=== PATIENT | female | born 1950 | race Hispanic/Latino ===

== ENCOUNTER 2018-05-21 15:25 | Emergency (ER) | payer MEDICARE | END 2018-05-21 15:56 | disposition home or self-care (01) | LOC: EDH 15:25 | DX: L03.115 Cellulitis of right lower limb (principal); I12.0 Hypertensive chronic kidney disease with stage 5 chronic kidney disease or end stage renal disease; E11.22 Type 2 diabetes mellitus with diabetic chronic kidney disease; N18.6 End stage renal disease; E78.5 Hyperlipidemia, unspecified; Z99.2 Dependence on renal dialysis; Z90.49 Acquired absence of other specified parts of digestive tract; Z79.899 Other long term (current) drug therapy ==

== ENCOUNTER 2018-06-29 08:08 | Day surgery (SDC) | payer MEDICARE ==
[2018-06-29] VITALS (7 sets, daily range): BP systolic 104–148; BP diastolic 34–58
[~2018-06-29] VITALS: Ht 157.5 cm; Wt 104.3 kg
[~2018-06-29 08:08] MED LIST: ALLO100T PO; ATOR40TA71 PO; COLE1TAB2 PO; ERGO500014 PO; ESOM40CA54 PO; FURO20TA4 PO; GABA-531 PO; INSNOV SQ; INSU100V12 SQ; LEVO50TA11 PO; LIOT50TA3 PO; MUPI22OI2 TP; NEBI10TA PO; SODIUM CHLORIDE 0.9% 1000ML 1,000 ML IV ONE; SOLI5 PO
[2018-06-29] MEDS ORDERED: DEXTROSE 50%-WATER 50 ML DISP.SYRIN IV ONE (09:29)
[2018-06-29] MEDS ORDERED: PROPOFOL 10 MG/ML 20ML VIAL IV ONE (10:06)
== END 2018-06-29 11:25 | disposition home or self-care (01) ==
LOC: DAH 08:08 → ENDO 08:08
PROVIDERS: ATTEND Internal Medicine Gastroenterology
DX: Z09 Encounter for follow-up examination after completed treatment for conditions other than malignant neoplasm (principal); D12.2 Benign neoplasm of ascending colon; K22.2 Esophageal obstruction; Z86.010 Personal history of colon polyps; E78.2 Mixed hyperlipidemia; K31.9 Disease of stomach and duodenum, unspecified; K29.50 Unspecified chronic gastritis without bleeding; K21.9 Gastro-esophageal reflux disease without esophagitis; Z68.41 Body mass index [BMI] 40.0-44.9, adult; E11.22 Type 2 diabetes mellitus with diabetic chronic kidney disease; I12.0 Hypertensive chronic kidney disease with stage 5 chronic kidney disease or end stage renal disease; N18.6 End stage renal disease; Z79.4 Long term (current) use of insulin; Z79.84 Long term (current) use of oral hypoglycemic drugs; Z79.899 Other long term (current) drug therapy; Z79.82 Long term (current) use of aspirin; Z98.49 Cataract extraction status, unspecified eye
CPT/HCPCS: 36415; 43239; 45380; 82948 ×3; 84132; 88305; 88342; 93005; A4606; J2704; J7030; J7070

== ENCOUNTER 2018-07-29 10:07 | Emergency (ER) | payer MEDICARE ==
[~2018-07-29 10:07] MED LIST changes: -SODIUM CHLORIDE 0.9% 1000ML 1,000 ML IV ONE
[2018-07-29 11:20] LABS: BASOPHILS % (AUTO) 1.3 % (0.0-5.0); EOSINOPHILS % (AUTO) 1.8 % (0.0-8.0); HEMATOCRIT 31.8 % (36-48); MEAN CORPUSCULAR HEMOGLOBIN 30.3 pg (27.0-33.0); MEAN CORPUSCULAR HGB CONC 33.1 g/dL (32.0-36.0); MEAN CORPUSCULAR VOLUME 91.5 fL (79-99); MONOCYTES % (AUTO) 5.9 % (3.0-13.0); PLATELET COUNT (AUTO) 269 K/uL (130-400); RED BLOOD CELL COUNT(AUTO) 3.48 MIL/uL (4.00-5.50); RED CELL DISTRIBUTION WIDTH 14.4 % (11.0-15.5); WHITE BLOOD COUNT (AUTO) 8.7 K/uL (4.8-10.8)
[2018-07-29 11:28] LABS: CREATININE 6.4 mg/dL (0.5-1.5); POTASSIUM 3.9 mmol/L (3.5-5.1)
[2018-07-29 11:33] LABS: BILIRUBIN,TOTAL 0.6 mg/dL (0.2-1.0); TOTAL PROTEIN, SERUM 6.9 g/dL (6.0-8.3)
[2018-07-29 11:52] LABS: B-TYPE NATRIURETIC PEPTIDE 448 pg/mL (0-100)
[2018-07-29] MEDS ORDERED: FUROSEMIDE 10 MG/ML 4ML VIAL ONE (13:13)
[2018-07-29] MEDS ORDERED: SODIUM CHLORIDE 0.9% 1000ML 1,000 ML IV ONE (13:32)
== END 2018-07-29 14:42 | disposition home or self-care (01) ==
LOC: EDH 10:07
DX: I12.0 Hypertensive chronic kidney disease with stage 5 chronic kidney disease or end stage renal disease (principal); E11.22 Type 2 diabetes mellitus with diabetic chronic kidney disease; N18.6 End stage renal disease; E87.70 Fluid overload, unspecified; R05 Cough; E78.5 Hyperlipidemia, unspecified; Z99.2 Dependence on renal dialysis; Z90.49 Acquired absence of other specified parts of digestive tract; Z79.4 Long term (current) use of insulin; Z98.890 Other specified postprocedural states
CPT/HCPCS: 36415; 71046; 80053; 82550; 83880; 84484; 85025; 93005; 96374; 99285; J1940; J7030

== ENCOUNTER → 2018-08-12 | Outpatient (CLI) | payer MEDICARE | END | disposition home or self-care (01) | LOC: RAH 07-22 11:08 | PROVIDERS: ATTEND Family Medicine | DX: R11.0 Nausea (principal); E11.9 Type 2 diabetes mellitus without complications; N19 Unspecified kidney failure | CPT/HCPCS: 78264; A9541 ==

== ENCOUNTER 2018-09-10 12:10 | Inpatient (IN) | payer MEDICARE, OTHER ==
[~2018-09-10] VITALS: Ht 154.9 cm; Wt 100.2 kg
[~2018-09-10 12:10] MED LIST changes: -LIOT50TA3 PO; +LIOT50TA4 PO
[2018-09-10 12:49] LABS: BASOPHILS % (AUTO) 0.8 % (0.0-5.0); EOSINOPHILS % (AUTO) 0.2 % (0.0-8.0); HEMATOCRIT 39.5 % (36-48); LYMPHOCYTES % (AUTO) 5.8 % (21.0-51.0); MEAN CORPUSCULAR HGB CONC 32.9 g/dL (32.0-36.0); MEAN CORPUSCULAR VOLUME 91.3 fL (79-99); MONOCYTES % (AUTO) 4.6 % (3.0-13.0); NEUTROPHILS % (AUTO) 88.6 % (40.0-77.0); PLATELET COUNT (AUTO) 232 K/uL (130-400); RED BLOOD CELL COUNT(AUTO) 4.33 MIL/uL (4.00-5.50); RED CELL DISTRIBUTION WIDTH 15.2 % (11.0-15.5); WHITE BLOOD COUNT (AUTO) 17.8 K/uL (4.8-10.8)
[2018-09-10 12:55] LABS: CARBON DIOXIDE 34 mmol/L (21-32); CHLORIDE 95 mmol/L (101-111); CREATININE 4.9 mg/dL (0.5-1.5); GLOMERULAR FILTR. RATE CALC 9 mL/min (>60); GLUCOSE,RANDOM 204 mg/dL (70-105); POTASSIUM 4.5 mmol/L (3.5-5.1); SODIUM SERUM 135 mmol/L (136-145); UREA NITROGEN, BLOOD 29 mg/dL (7-18)
[2018-09-10 13:00] LABS: ALANINE AMINOTRANSFERASE 19 U/L (12-78); ALBUMIN 3.3 g/dL (3.5-5.0); ASPARTATE AMINOTRANSFERASE 20 U/L (10-37); BILIRUBIN,TOTAL 0.5 mg/dL (0.2-1.0); CREATINE KINASE, TOTAL 56 U/L (21-232); TOTAL PROTEIN, SERUM 7.8 g/dL (6.0-8.3)
[2018-09-10 13:04] LABS: AMMONIA < 10 umol/L (11-32)
[2018-09-10 13:21] LABS: INR 0.99 (0.85-1.15); PARTIAL THROMBOPLASTIN TIME 26.6 SEC (26.3-35.5); PROTHROMBIN TIME 10.4 SEC (9.6-11.6)
[2018-09-10 13:42] LABS: APPEARANCE,URINE CLEAR (CLEAR); BILIRUBIN,URINE NEGATIVE (NEGATIVE); COLOR,URINE YELLOW (YELLOW); GLUCOSE, URINE (UA) NEGATIVE (NEGATIVE); KETONES,URINE NEGATIVE (NEGATIVE); LEUKOCYTE ESTERASE ,URINE MODERATE (NEGATIVE); NITRATE,URINE NEGATIVE (NEGATIVE); OCCULT BLOOD,URINE SMALL (NEGATIVE); PH,URINE 8.5 (5.0-8.0); PROTEIN,URINE 100 mg/dL (NEGATIVE); UROBILINOGEN,URINE 0.2 mg/dL (0.2-1.0)
[2018-09-10 13:44] LABS: BACTERIA,URINE Few /HPF (None Seen); SQUAMOUS EPITHELIAL CELL,UR Few /HPF (0-2)
[2018-09-10] MEDS ORDERED: SODIUM CHLORIDE 0.9% 100 ML IV ONE (15:27)
[2018-09-10] MEDS ORDERED: CEFTRIAXONE SODIUM 1 GM ONE (15:27)
[2018-09-10] MEDS ORDERED: ACETAMINOPHEN 325 MG TAB PO PRN (16:45)
[2018-09-10] MEDS ORDERED: LABETALOL 20 MG/4 ML DISP.SYRIN IV PRN (16:45)
[2018-09-10] MEDS ORDERED: GENTAMICIN PROTOCOL PER PHARMACY IV SCH (16:45)
[2018-09-10] MEDS ORDERED: DEXTROSE 50%-WATER 50 ML DISP.SYRIN IV PRN (16:45)
[2018-09-10] MEDS ORDERED: GLUCAGON 1MG KIT 1 MG ML IM PRN (16:45)
[2018-09-10] MEDS ORDERED: ONDANSETRON HCL 4 MG/2 ML VIAL IVP PRN (16:45)
[2018-09-10] MEDS ORDERED: GENTAMICIN 120 MG IN 100ML NS 100 ML IV ONE (17:00)
--- NOTE | 2018-09-10 17:01 | NUR ---
Admit from ER in stable condition with UTI. Addendum: 09/10/18 at 1708 by OTIS HILL RN RN Amended: Links added.
--- NOTE | 2018-09-10 17:11 | NUR ---
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 Addendum: 09/10/18 at 1715 by OTIS HILL RN RN Amended: Links added.
--- NOTE | 2018-09-10 17:12 | NUR ---
very little urine output, dialysis at [facility] in [place] [facility] Addendum: 09/10/18 at 1715 by OTIS HILL RN RN Amended: Links added.
[2018-09-10 17:33] VITALS: BP 170/66
--- NOTE | 2018-09-10 17:33 | NUR ---
due to void, has little output Addendum: 09/10/18 at 1837 by OTIS HILL RN RN Amended: Links added.
--- NOTE | 2018-09-10 17:49 | NUR ---
c-pap Addendum: 09/10/18 at 1752 by OTIS HILL RN RN Amended: Links added.
--- NOTE | 2018-09-10 18:00 | NUR ---
Called pharmacy for Gentamicin
--- NOTE | 2018-09-10 18:15 | NUR ---
Notified Dr. Shabazz of nephrology consult. Orders received.
[2018-09-10] MEDS ORDERED: COMPOUND IV REFRIGERATED 1 EACH IVSOLN MISC PRN (18:45)
[2018-09-10] MEDS ORDERED: SEVE800T27 PO (19:22)
[2018-09-10] MEDS ORDERED: CALC-1153 PO (19:22)
[2018-09-10] MEDS ORDERED: ONDA8TAB5 PO (19:22)
[2018-09-10 19:50] VITALS: BP 117/44
[2018-09-10] MEDS: GENTAMICIN SULFATE 100 MG in SODIUM CHLORIDE 0.9% 100 ML IV SCH (20:12)
[2018-09-10] MEDS: INSULIN R PO SS1 SQ SCH (20:21)
[2018-09-11 00:04] VITALS: BP 138/63
[2018-09-11 04:00] VITALS: BP 151/58
[2018-09-11] MEDS: INSULIN R PO SS1 SQ SCH ×4 (05:41→20:58)
[2018-09-11] MEDS ORDERED: ONDANSETRON ODT 4 MG TAB PO PRN (07:15)
[2018-09-11] MEDS ORDERED: LEVOTHYROXINE 50 MCG TABLET PO SCH (07:55)
[2018-09-11 08:33] VITALS: BP 129/61
[2018-09-11] MEDS ORDERED: FUROSEMIDE 20 MG TABLET PO SCH (09:00)
[2018-09-11] MEDS: SOLIFENACIN SUCCINATE 5 MG PO SCH (09:00)
[2018-09-11] MEDS: COLESTIPOL HCL 1 GM PO SCH (09:00)
[2018-09-11] MEDS: LIOTHYRONINE SODIUM 50 MCG PO SCH (09:00)
[2018-09-11] MEDS: ALLOPURINOL 100 MG TABLET PO SCH (09:47)
[2018-09-11] MEDS: GABAPENTIN 300 MG CAPSULE PO SCH ×3 (09:47→20:57)
[2018-09-11] MEDS: SEVELAMER HCL 800 MG TABLET PO SCH ×2 (09:47→16:32)
[2018-09-11] MEDS: ERGOCALCIFEROL (VITAMIN D2) 50,000 UNIT CAPSULE PO SCH (09:47)
[2018-09-11] MEDS: CALCIUM 600 + VITAMIN D 400 TABLET PO SCH (09:47)
[2018-09-11] MEDS: NEBIVOLOL HCL 5 MG TABLET PO SCH (09:48)
[2018-09-11] MEDS: MUPIROCIN OINTMENT 22 GM TUBE TP SCH ×2 (09:48→20:59)
[2018-09-11 11:33] VITALS: BP 146/63
[2018-09-11] MEDS: CEFTRIAXONE SODIUM 1 GM IVP SCH (12:53)
[2018-09-11] MEDS: INSULIN LISPRO 100 UNIT/ML 3ML SQ SCH ×2 (13:16→16:30)
[2018-09-11 15:01] LABS: HEMATOCRIT 38.7 % (36-48); MEAN CORPUSCULAR HEMOGLOBIN 29.4 pg (27.0-33.0); MEAN CORPUSCULAR HGB CONC 32.4 g/dL (32.0-36.0); MEAN CORPUSCULAR VOLUME 90.7 fL (79-99); PLATELET COUNT (AUTO) 232 K/uL (130-400); RED BLOOD CELL COUNT(AUTO) 4.27 MIL/uL (4.00-5.50); RED CELL DISTRIBUTION WIDTH 16.1 % (11.0-15.5); WHITE BLOOD COUNT (AUTO) 8.4 K/uL (4.8-10.8)
[2018-09-11 15:11] LABS: CREATININE 7.3 mg/dL (0.5-1.5); POTASSIUM 4.4 mmol/L (3.5-5.1)
[2018-09-11 16:26] VITALS: BP 162/63
[2018-09-11] MEDS: INSULIN GLARGINE 100 UNITS/ML 10 ML VIAL SQ SCH (16:29)
--- NOTE | 2018-09-11 16:30 | NUR ---
INITIAL MET W PT AND RENEA WHO WILL PROVIDE TRANSPORT [facility] [place], DR SELENA FERNANDEZ MD, PROVIDES TRANSPORT; PT RESPONSE TO QUESTIONS IS ERRATIC, CONCERNED STATES NOT ACTING LIKE HERSELF, IS STILL GOOFY, INTERMITTENTLY MIXING UP WORDS, ASKED [facility] SWIFT FOR CT HEAD ORDER. WILL FOLLOW Addendum: 09/12/18 at 0856 by EDMUNDO SAM RN CM Amended: Links added.
[2018-09-11] MEDS: PANTOPRAZOLE SODIUM 40 MG TABLET.DR PO SCH (16:32)
--- NOTE | 2018-09-11 19:05 | NUR ---
CASE MANAGEMENT REQUEST PER MANASA PARAPROFESSIONAL AIDE, REQUESTING TO ASK MD FOR CT OR MRI OF HEAD/BRAIN DUE TO PATIENTS CONFUSION. PT IS AAOX3, HARD OF HEARING. CHANGE OF SHIFT HAPPENING AT THE MOMENT, REPORT PASSED TO ALLYSON TAVAREZ FOR REQUEST OF CT OR MRI OF BRAIN/HEAD.
[2018-09-11 19:50] VITALS: BP 139/55
[2018-09-11] MEDS: ATORVASTATIN CALCIUM 40 MG TABLET PO SCH (20:57)
[2018-09-12] VITALS (9 sets, daily range): BP systolic 112–190; BP diastolic 58–84
[2018-09-12] MEDS: INSULIN R PO SS1 SQ SCH (06:31)
[2018-09-12] MEDS: INSULIN LISPRO 100 UNIT/ML 3ML SQ SCH (06:31)
[2018-09-12] MEDS: SEVELAMER HCL 800 MG TABLET PO SCH ×2 (06:34→16:30)
[2018-09-12] MEDS: LEVOTHYROXINE 50 MCG TABLET PO SCH (06:35)
[2018-09-12] MEDS: INSULIN GLARGINE 100 UNITS/ML 10 ML VIAL SQ SCH (07:30)
[2018-09-12] MEDS: NEBIVOLOL HCL 5 MG TABLET PO SCH (08:57)
[2018-09-12] MEDS: CALCIUM 600 + VITAMIN D 400 TABLET PO SCH (08:58)
[2018-09-12] MEDS: LIOTHYRONINE SODIUM 50 MCG PO SCH (08:58)
[2018-09-12] MEDS: ALLOPURINOL 100 MG TABLET PO SCH (08:58)
[2018-09-12] MEDS: GABAPENTIN 300 MG CAPSULE PO SCH (08:58)
[2018-09-12] MEDS: COLESTIPOL HCL 1 GM PO SCH (08:58)
[2018-09-12] MEDS: SOLIFENACIN SUCCINATE 5 MG PO SCH (08:58)
[2018-09-12] MEDS: ERGOCALCIFEROL (VITAMIN D2) 50,000 UNIT CAPSULE PO SCH (08:58)
[2018-09-12] MEDS: MUPIROCIN OINTMENT 22 GM TUBE TP SCH ×2 (08:59→20:31)
[2018-09-12] MEDS: CEFTRIAXONE SODIUM 1 GM IVP SCH (13:53)
[2018-09-12] MEDS: NYSTATIN 15 GM POWDER TP SCH ×2 (14:00→20:30)
--- NOTE | 2018-09-12 14:00 | NUR ---
DR. SHIRLEY ROUNDED ON PT FAMILY AND PT UPSET STATED THAT A LADY HAD COME AND SAID YESTERDAY PT NEEDED A CT OF THE HEAD AND THEY WERE GOING TO ORDER ONE DR. SHIRLEY STATED, THERE WAS NO ORDER FOR CT OF THE HEAD AND HE DID NOT SEEM NECESSARY ONE EITHER SINCE PT WAS STABLE AND NEUROLOGICAL STATUS STABLE
[2018-09-12] MEDS: PANTOPRAZOLE SODIUM 40 MG TABLET.DR PO SCH (16:30)
[2018-09-12] MEDS: GENTAMICIN SULFATE 100 MG in SODIUM CHLORIDE 0.9% 100 ML IV SCH (19:50)
[2018-09-12] MEDS: ATORVASTATIN CALCIUM 40 MG TABLET PO SCH (20:30)
[2018-09-12] MEDS ORDERED: GABAPENTIN 300 MG CAPSULE PO SCH (21:00)
[2018-09-13 03:50] VITALS: BP 176/72
[2018-09-13] MEDS: LEVOTHYROXINE 50 MCG TABLET PO SCH (07:06)
[2018-09-13 08:14] VITALS: BP 174/81
[2018-09-13] MEDS: NEBIVOLOL HCL 5 MG TABLET PO SCH (09:00)
[2018-09-13] MEDS: SOLIFENACIN SUCCINATE 5 MG PO SCH (09:00)
[2018-09-13] MEDS: COLESTIPOL HCL 1 GM PO SCH (09:00)
[2018-09-13] MEDS: LIOTHYRONINE SODIUM 50 MCG PO SCH (09:00)
[2018-09-13] MEDS ORDERED: LEVOFLOXACIN 500 MG TABLET PO SCH (09:00)
--- NOTE | 2018-09-13 09:08 | NUR ---
HEMODIALYSIS TREATMENT HEMODIALYSIS NURSE IN PATIENT ROOM AND STARTING PATIENT ON HD TREATMENT. DID NOT ADMINISTER SCHEDULED BLOOD PRESSURE MEDICATIONS.
[2018-09-13] MEDS ORDERED: HEPARIN SODIUM 5000UNIT/ML 1ML VIAL IJ PRN (10:00)
[2018-09-13] MEDS ORDERED: SODIUM CHLORIDE 0.9% 1000ML 1,000 ML IV PRN (10:00)
[2018-09-13] MEDS ORDERED: 0.9% SODIUM CHLORIDE 1000 ML IV BAG IV PRN (10:00)
[2018-09-13] MEDS ORDERED: LIDOCAINE HCL-MPF 1% 2ML VIAL IJ PRN (10:00)
[2018-09-13] MEDS ORDERED: ACETAMINOPHEN 325 MG TAB PO PRN (10:00)
[2018-09-13] MEDS ORDERED: NITROGLYCERIN 0.4 MG SL TAB SL PRN (10:00)
[2018-09-13] MEDS: CALCIUM 600 + VITAMIN D 400 TABLET PO SCH (10:29)
[2018-09-13] MEDS: SEVELAMER HCL 800 MG TABLET PO SCH (10:29)
[2018-09-13] MEDS: ALLOPURINOL 100 MG TABLET PO SCH (10:29)
[2018-09-13 11:42] VITALS: BP 164/65
[2018-09-13] MEDS: MUPIROCIN OINTMENT 22 GM TUBE TP SCH (14:05)
[2018-09-13] MEDS: NYSTATIN 15 GM POWDER TP SCH ×2 (14:06→14:18)
[2018-09-13] MEDS: CEFTRIAXONE SODIUM 1 GM IVP SCH (14:21)
--- NOTE | 2018-09-13 15:45 | NUR ---
DISCHARGE INSTRUCTION REVIEWED DISCHARGE INSTRUCTIONS, AT BEDSIDE WELL, PRESCRIPTION GIVEN TO . INSTRUCTIONS TO CALL AND MAKE FOLLOW UP APPT. IN 1 WEEK. VERBALIZES UNDERSTANDING.
[2018-09-14 08:14] LABS: HEPATITIS Bs ANTIGEN SCREEN P Negative (Negative)
== END 2018-09-13 16:03 | disposition home or self-care (01) | DRG 637 ==
LOC: EDH 12:10 → OBSVTOIN 15:12 → EDHIP 15:12 → 4AH 17:01
PROVIDERS: ADMIT Internal Medicine Pulmonary Disease; ATTEND Internal Medicine Pulmonary Disease
PROC: 5A1D70Z Performance of Urinary Filtration, Intermittent, Less than 6 Hours Per Day (ICD-10-PCS; principal; 2018-09-13)
DX: E11.65 Type 2 diabetes mellitus with hyperglycemia (principal); N18.6 End stage renal disease; N39.0 Urinary tract infection, site not specified; I12.0 Hypertensive chronic kidney disease with stage 5 chronic kidney disease or end stage renal disease; Z68.41 Body mass index [BMI] 40.0-44.9, adult; G47.33 Obstructive sleep apnea (adult) (pediatric); E66.01 Morbid (severe) obesity due to excess calories; E11.649 Type 2 diabetes mellitus with hypoglycemia without coma; E11.22 Type 2 diabetes mellitus with diabetic chronic kidney disease; R91.1 Solitary pulmonary nodule; E78.5 Hyperlipidemia, unspecified; Z99.2 Dependence on renal dialysis
CPT/HCPCS: 36415; 71045; 71250; 80048; 80053; 81001; 82140; 82550; 82948; 84484; 85025; 85027; 85610; 85730; 86704; 86706; 87088; 87340; 87520; 90935; 93005; G0378; J0696; J1580; J2405

== ENCOUNTER → 2018-10-14 | Outpatient (CLI) | payer MEDICARE, OTHER ==
[~2018-10-14] MED LIST changes: +CALC-1153 PO; -INSNOV SQ; -INSU100V12 SQ; +ONDA8TAB5 PO; +SEVE800T27 PO
== END | disposition home or self-care (01) ==
LOC: RAH 14:32
PROVIDERS: ATTEND Family Medicine
DX: G31.89 Other specified degenerative diseases of nervous system (principal); R90.82 White matter disease, unspecified
CPT/HCPCS: 70551

== ENCOUNTER 2018-11-20 17:18 | Observation (INO) | payer MEDICARE, OTHER ==
[~2018-11-20] VITALS: Ht 157.5 cm; Wt 99.5 kg
[2018-11-20] MEDS ORDERED: SODIUM CHLORIDE 0.9% 1000ML 1,000 ML IV ONE (17:51)
[2018-11-20] MEDS ORDERED: DEXTROSE 50%-WATER 50 ML DISP.SYRIN IV ONE (17:51)
[2018-11-20] MEDS ORDERED: ONDANSETRON HCL 4 MG/2 ML VIAL ONE (17:51)
[2018-11-20 18:05] LABS: BASOPHILS % (AUTO) 0.6 % (0.0-5.0); EOSINOPHILS % (AUTO) 1.8 % (0.0-8.0); LYMPHOCYTES % (AUTO) 12.7 % (21.0-51.0); MEAN CORPUSCULAR HEMOGLOBIN 29.7 pg (27.0-33.0); MEAN CORPUSCULAR HGB CONC 33.1 g/dL (32.0-36.0); MEAN CORPUSCULAR VOLUME 89.5 fL (79-99); MONOCYTES % (AUTO) 8.9 % (3.0-13.0); PLATELET COUNT (AUTO) 269 K/uL (130-400); RED CELL DISTRIBUTION WIDTH 16.2 % (11.0-15.5); WHITE BLOOD COUNT (AUTO) 7.7 K/uL (4.8-10.8)
[2018-11-20 18:23] LABS: INR 0.97 (0.85-1.15); PARTIAL THROMBOPLASTIN TIME 25.9 SEC (26.3-35.5); PROTHROMBIN TIME 10.2 SEC (9.6-11.6)
[2018-11-20 18:39] LABS: ALBUMIN 3.4 g/dL (3.5-5.0); BILIRUBIN,TOTAL 0.6 mg/dL (0.2-1.0); MAGNESIUM 2.4 mg/dL (1.80-2.40); POTASSIUM 3.4 mmol/L (3.5-5.1); TOTAL PROTEIN, SERUM 7.8 g/dL (6.0-8.3)
[2018-11-20] MEDS ORDERED: DEXTROSE 5 %-0.45 % NACL 1,000 ML IV ONE (19:55)
[2018-11-20] MEDS ORDERED: DEXTROSE 50%-WATER 50 ML DISP.SYRIN IV PRN (21:45)
[2018-11-20] MEDS ORDERED: GLUCAGON 1MG KIT 1 MG ML IM PRN (21:45)
[2018-11-20] MEDS ORDERED: MAGNESIUM 2GM PREMIX 50ML 50 ML IV PRN (21:45)
[2018-11-20] MEDS ORDERED: DEXTROSE 5 %-0.45 % NACL 500 ML IV SCH (21:45)
[2018-11-20 21:48] VITALS: BP 193/67
--- NOTE | 2018-11-20 22:30 | NUR ---
Nursing Note Pt arrived to floor and settled into room. Pt stable hooked up to IV. Waiting for pharmacy to approved hydralazine for BP, PT BP high. Tried to call PT's Joe to inform him to bring medications when he comes, but no answer at this time.
[2018-11-20] MEDS ORDERED: HYDRALAZINE HCL 20 MG/ML VIAL ONE (22:48)
[2018-11-21 00:08] VITALS: BP 162/75
[2018-11-21] MEDS ORDERED: DEXTROSE 5 %-0.45 % NACL 1,000 ML IV SCH (01:15)
[2018-11-21 04:00] VITALS: BP 186/65
[2018-11-21 06:16] LABS: BASOPHILS % (AUTO) 1.2 % (0.0-5.0); EOSINOPHILS % (AUTO) 4.3 % (0.0-8.0); HEMATOCRIT 31.7 % (36-48); LYMPHOCYTES % (AUTO) 18.4 % (21.0-51.0); MEAN CORPUSCULAR HEMOGLOBIN 29.8 pg (27.0-33.0); MEAN CORPUSCULAR HGB CONC 33.2 g/dL (32.0-36.0); MEAN CORPUSCULAR VOLUME 89.7 fL (79-99); MONOCYTES % (AUTO) 7.5 % (3.0-13.0); NEUTROPHILS % (AUTO) 68.6 % (40.0-77.0); PLATELET COUNT (AUTO) 273 K/uL (130-400); RED BLOOD CELL COUNT(AUTO) 3.53 MIL/uL (4.00-5.50); RED CELL DISTRIBUTION WIDTH 16.3 % (11.0-15.5); WHITE BLOOD COUNT (AUTO) 7.7 K/uL (4.8-10.8)
[2018-11-21 06:21] LABS: HEMOGLOBIN A1C 5.9 % (4.0-6.0)
[2018-11-21 06:30] LABS: ALBUMIN 2.9 g/dL (3.5-5.0); BILIRUBIN,TOTAL 0.4 mg/dL (0.2-1.0); CREATININE 7.6 mg/dL (0.5-1.5); MAGNESIUM 2.6 mg/dL (1.80-2.40); PHOSPHORUS 6.8 mg/dL (2.5-4.9); POTASSIUM 4.1 mmol/L (3.5-5.1); TOTAL PROTEIN, SERUM 7.2 g/dL (6.0-8.3)
[2018-11-21 06:32] LABS: B-TYPE NATRIURETIC PEPTIDE 1060 pg/mL (0-100)
[2018-11-21] MEDS: HYDRALAZINE HCL 20 MG/ML VIAL IV PRN (06:39)
--- NOTE | 2018-11-21 07:42 | NUR ---
Nursing Note Spoke with Joe Miner- informed him to bring home medications he stated he would and he will be here in a little while
[2018-11-21 07:45] VITALS: BP 131/49
[2018-11-21] MEDS: METRONIDAZOLE 500 MG TABLET PO SCH ×3 (09:46→21:17)
[2018-11-21] MEDS ORDERED: INSU100C6 SQ (11:13)
[2018-11-21] MEDS ORDERED: SEVE800T27 PO (11:13)
[2018-11-21] MEDS ORDERED: INSU100V12 SQ (11:13)
[2018-11-21 12:00] VITALS: BP 164/71
[2018-11-21] MEDS ORDERED: ACETAMINOPHEN 325 MG TAB PO PRN ×2 (15:00)
[2018-11-21 16:00] VITALS: BP 174/76
[2018-11-21] MEDS: CEFTRIAXONE SODIUM 2 GM VIAL IVP SCH (16:40)
[2018-11-21] MEDS: SEVELAMER HCL 800 MG TABLET PO SCH (16:40)
[2018-11-21] MEDS: INSULIN HUMULIN R 100 UNIT/ML 3ML SQ SCH ×2 (16:49→21:00)
--- NOTE | 2018-11-21 18:15 | NUR ---
INITIAL: Met with pt this afternoon to discuss dcp. Pt mentions that she lives w her spouse. Prior to admission was using a cane for household ambulation, she is independent w aDLs. Pt mentions she has a rollator and wc avail if needed. Per pt she is able to self inject her insulin. Per pt she feels safe and comfortable to return home at or. CM to continue to follow and wait for Md recommendations. Addendum: 11/21/18 at 1817 by HENRI ROBERTSON Amended: Links added.
[2018-11-21 19:12] VITALS: BP 161/71
[2018-11-21] MEDS: GABAPENTIN 300 MG CAPSULE PO SCH (21:17)
[2018-11-21] MEDS: INSULIN GLARGINE 100 UNITS/ML 10 ML VIAL SQ SCH (21:20)
--- NOTE | 2018-11-21 23:10 | NUR ---
HD Dialysis nurse Katina informed of pt.s dialysis schedule in am.
[2018-11-22] VITALS (8 sets, daily range): BP systolic 147–203; BP diastolic 50–92
[2018-11-22] MEDS: HYDRALAZINE HCL 20 MG/ML VIAL IV PRN ×2 (01:11→09:03)
--- NOTE | 2018-11-22 01:11 | NUR ---
HYDRALAZINE Hydralazine given for sys bp >160.
--- NOTE | 2018-11-22 05:19 | NUR ---
ULTRASOUND Abdominal ultrasound being done at bedside per tech.
[2018-11-22] MEDS: LIOTHYRONINE SODIUM 50 MCG PO SCH (05:56)
[2018-11-22] MEDS: INSULIN HUMULIN R 100 UNIT/ML 3ML SQ SCH ×3 (05:57→20:07)
--- NOTE | 2018-11-22 06:27 | NUR ---
MD Dr SELENA DYSON CAME TO SEE PT.
[2018-11-22] MEDS ORDERED: ATORVASTATIN CALCIUM 40 MG TABLET PO SCH (09:00)
[2018-11-22] MEDS: SEVELAMER HCL 800 MG TABLET PO SCH ×3 (09:03→20:15)
[2018-11-22] MEDS: INSULIN GLARGINE 100 UNITS/ML 10 ML VIAL SQ SCH ×2 (09:15→20:17)
[2018-11-22] MEDS ORDERED: 0.9% SODIUM CHLORIDE 1000 ML IV BAG IV PRN (12:00)
[2018-11-22] MEDS ORDERED: NITROGLYCERIN 0.4 MG SL TAB SL PRN (12:00)
[2018-11-22] MEDS ORDERED: ACETAMINOPHEN 325 MG TAB PO PRN (12:00)
[2018-11-22] MEDS ORDERED: HEPARIN SODIUM 5000UNIT/ML 1ML VIAL IJ PRN (12:00)
[2018-11-22] MEDS ORDERED: SODIUM CHLORIDE 0.9% 1000ML 1,000 ML IV PRN (12:00)
[2018-11-22 12:21] LABS: HEMATOCRIT 30.9 % (36-48)
[2018-11-22 12:44] LABS: ALBUMIN 2.8 g/dL (3.5-5.0); BILIRUBIN,TOTAL 0.4 mg/dL (0.2-1.0); POTASSIUM 4.3 mmol/L (3.5-5.1); TOTAL PROTEIN, SERUM 6.7 g/dL (6.0-8.3)
[2018-11-22 12:52] LABS: CREATININE 9.5 mg/dL (0.5-1.5)
[2018-11-22 13:34] LABS: % IRON SATURATION 21.5 % (22-44)
[2018-11-22] MEDS: NEBIVOLOL HCL 5 MG TABLET PO SCH (14:37)
[2018-11-22] MEDS: METRONIDAZOLE 500 MG TABLET PO SCH ×3 (14:50→20:16)
[2018-11-22] MEDS: FUROSEMIDE 20 MG TABLET PO SCH (14:50)
[2018-11-22] MEDS: ALLOPURINOL 100 MG TABLET PO SCH (14:50)
[2018-11-22] MEDS: LEVOTHYROXINE 50 MCG TABLET PO SCH (14:50)
[2018-11-22] MEDS: CEFTRIAXONE SODIUM 2 GM VIAL IVP SCH (14:51)
[2018-11-22] MEDS: CALCIUM 600 + VITAMIN D 400 TABLET PO SCH (14:51)
--- NOTE | 2018-11-22 19:46 | NUR ---
UPDATE Patient with orders from Nurse Practitioner Symone Saunders to discharge if OK with regional maintenance manager. Dr. Shabazz was paged and she was informed of the blood pressures for patient including the latest BP reading at this time 185/[address] Patel stated to start on amlodipine 5mg PO daily first dose now and that her recommendation is to keep patient overnight. Attending physician on-call for [employer] [facility] was paged; pending to call back. Patient asymptomatic.
--- NOTE | 2018-11-22 20:10 | NUR ---
[employer]: Mr. Gandhi called back and was informed that pt. discharge order was held as per [employer] order.
[2018-11-22] MEDS: AMLODIPINE BESYLATE 5 MG TAB PO SCH (20:16)
[2018-11-22] MEDS: GABAPENTIN 300 MG CAPSULE PO SCH (20:16)
[2018-11-23 04:00] VITALS: BP 151/62
[2018-11-23] MEDS: LIOTHYRONINE SODIUM 50 MCG PO SCH (06:01)
[2018-11-23] MEDS: INSULIN HUMULIN R 100 UNIT/ML 3ML SQ SCH (06:01)
--- NOTE | 2018-11-23 06:15 | NUR ---
Dr. Shabazz rounded: Visited and talked to patient with the ff orders: Ok to discharge today.Continue Amlodipine 5 mg po daily for high BP as ordered. Dr. [facility] will call patient for follow-up appointment.
[2018-11-23 07:15] VITALS: BP 182/75
[2018-11-23] MEDS: SEVELAMER HCL 800 MG TABLET PO SCH (08:47)
[2018-11-23] MEDS: CALCIUM 600 + VITAMIN D 400 TABLET PO SCH (08:48)
[2018-11-23] MEDS: METRONIDAZOLE 500 MG TABLET PO SCH (08:48)
[2018-11-23] MEDS: FUROSEMIDE 20 MG TABLET PO SCH (08:48)
[2018-11-23] MEDS: ALLOPURINOL 100 MG TABLET PO SCH (08:48)
[2018-11-23] MEDS: AMLODIPINE BESYLATE 5 MG TAB PO SCH (08:48)
[2018-11-23] MEDS: LEVOTHYROXINE 50 MCG TABLET PO SCH (08:48)
[2018-11-23] MEDS: INSULIN GLARGINE 100 UNITS/ML 10 ML VIAL SQ SCH ×2 (09:00→09:51)
[2018-11-23] MEDS: NEBIVOLOL HCL 5 MG TABLET PO SCH (09:48)
--- NOTE | 2018-11-23 09:52 | NUR ---
BP/LANTUS Gave bystolic 10mg PO and lantus 15units SQ to right abdomen. Gave lantus education and that her dose was readjusted to 15units SQ BID.
[2018-11-23 10:12] LABS: HEPATITIS Bs ANTIGEN SCREEN P Negative (Negative)
[2018-11-23 10:39] VITALS: BP 154/64
[2018-11-24] MEDS ORDERED: NEBIVOLOL HCL 5 MG TABLET PO SCH (09:00)
== END 2018-11-23 12:45 | disposition home or self-care (01) ==
LOC: EDH 17:18 → EDHIP 20:00 → 3DH 21:48
PROVIDERS: ADMIT Internal Medicine Critical Care Medicine; ATTEND Internal Medicine Critical Care Medicine
DX: E11.649 Type 2 diabetes mellitus with hypoglycemia without coma (principal); D63.1 Anemia in chronic kidney disease; I12.0 Hypertensive chronic kidney disease with stage 5 chronic kidney disease or end stage renal disease; N18.6 End stage renal disease; E03.9 Hypothyroidism, unspecified; E11.22 Type 2 diabetes mellitus with diabetic chronic kidney disease; E11.65 Type 2 diabetes mellitus with hyperglycemia; E66.01 Morbid (severe) obesity due to excess calories; E78.5 Hyperlipidemia, unspecified; K21.9 Gastro-esophageal reflux disease without esophagitis; E83.39 Other disorders of phosphorus metabolism; G47.33 Obstructive sleep apnea (adult) (pediatric); K52.9 Noninfective gastroenteritis and colitis, unspecified; N39.0 Urinary tract infection, site not specified; Z99.2 Dependence on renal dialysis; Z79.4 Long term (current) use of insulin; Z79.890 Hormone replacement therapy; Z79.899 Other long term (current) drug therapy; Z82.49 Family history of ischemic heart disease and other diseases of the circulatory system; Z83.3 Family history of diabetes mellitus; Z90.49 Acquired absence of other specified parts of digestive tract
CPT/HCPCS: 36415 ×3; 71045; 76705; 80053 ×3; 80061; 82550; 82728; 82948 ×14; 83036; 83540; 83550; 83605; 83690; 83735 ×2; 83880; 84100; 84484; 85014; 85018; 85025 ×2; 85610; 85730; 86701; 86704; 86706; 87340; 87390; 87520; 93005; 96372 ×5; 96374; 96375; 96376 ×2; 99284; G0257; G0378 ×64; J0360 ×4; J0696 ×2; J1815 ×3; J2405; J7030; J7042 ×2; J7070; 90935; J3475

== ENCOUNTER 2019-04-13 20:45 | Emergency (ER) | payer MEDICARE, OTHER ==
[~2019-04-13 20:45] MED LIST changes: +INSU100C6 SQ; +INSU100V12 SQ; -LIOT50TA4 PO; +LIOT50TA6 PO; -MUPI22OI2 TP
[2019-04-13 21:31] LABS: APPEARANCE,URINE CLOUDY (CLEAR); BILIRUBIN,URINE NEGATIVE (NEGATIVE); COLOR,URINE YELLOW (YELLOW); GLUCOSE, URINE (UA) 500 mg/dL (NEGATIVE); KETONES,URINE NEGATIVE (NEGATIVE); LEUKOCYTE ESTERASE ,URINE MODERATE (NEGATIVE); NITRATE,URINE NEGATIVE (NEGATIVE); OCCULT BLOOD,URINE MODERATE (NEGATIVE); PH,URINE 8.5 (5.0-8.0); PROTEIN,URINE >=300 mg/dL (NEGATIVE); UROBILINOGEN,URINE 0.2 mg/dL (0.2-1.0)
[2019-04-13 21:35] LABS: BASOPHILS % (AUTO) 0.5 % (0.0-5.0); EOSINOPHILS % (AUTO) 1.2 % (0.0-8.0); HEMATOCRIT 34.1 % (36-48); LYMPHOCYTES % (AUTO) 10.8 % (21.0-51.0); MEAN CORPUSCULAR HEMOGLOBIN 28.4 pg (27.0-33.0); MEAN CORPUSCULAR VOLUME 88.8 fL (79-99); MONOCYTES % (AUTO) 7.4 % (3.0-13.0); NEUTROPHILS % (AUTO) 79.7 % (40.0-77.0); PLATELET COUNT (AUTO) 189 K/uL (130-400); RED BLOOD CELL COUNT(AUTO) 3.84 MIL/uL (4.00-5.50); RED CELL DISTRIBUTION WIDTH 15.9 % (11.0-15.5); WHITE BLOOD COUNT (AUTO) 10.4 K/uL (4.8-10.8)
[2019-04-13 21:38] LABS: BACTERIA,URINE Few /HPF (None Seen); SQUAMOUS EPITHELIAL CELL,UR Moderate /HPF (0-2); WBC,URINE 26-50 /HPF (0-1)
[2019-04-13 21:39] LABS: TRANSITIONAL EPI CELLS,URINE Few /HPF (None Seen)
[2019-04-13 21:45] LABS: CREATININE 4.6 mg/dL (0.5-1.5); POTASSIUM 4.1 mmol/L (3.5-5.1)
[2019-04-13 21:50] LABS: ALBUMIN 3.1 g/dL (3.5-5.0); BILIRUBIN,TOTAL 0.7 mg/dL (0.2-1.0); TOTAL PROTEIN, SERUM 7.1 g/dL (6.0-8.3)
[2019-04-13] MEDS ORDERED: CEFTRIAXONE SODIUM 1 GM ONE (21:56)
[2019-04-13] MEDS ORDERED: LIDOCAINE HCL-MPF 1% 2ML VIAL ONE (21:56)
[2019-04-13] MEDS ORDERED: HYDRALAZINE HCL 25 MG TABLET ONE (22:09)
== END 2019-04-13 23:44 | disposition home or self-care (01) ==
LOC: EDH 20:45
DX: E11.22 Type 2 diabetes mellitus with diabetic chronic kidney disease (principal); I12.0 Hypertensive chronic kidney disease with stage 5 chronic kidney disease or end stage renal disease; N39.0 Urinary tract infection, site not specified; N18.6 End stage renal disease; E78.5 Hyperlipidemia, unspecified; Z79.4 Long term (current) use of insulin; Z99.2 Dependence on renal dialysis; Z90.49 Acquired absence of other specified parts of digestive tract
CPT/HCPCS: 36415; 80053; 81001; 82948 ×2; 85025; 87088; 93005; 96372; 99285; J0696; J3490

== ENCOUNTER → 2019-04-21 | Outpatient (CLI) | payer MEDICARE, OTHER ==
[~2019-04-21] MED LIST changes: +COLC0.6T70 PO; +FAMO40TA7 PO; +FESO4TAB PO; +INSU100I21 SQ; +LIOT5TAB11 PO; +LISI10TA7 PO; +ONDA-104 PO; +PSYL0.525 PO
== END | disposition home or self-care (01) ==
LOC: SHCH 12:56
PROVIDERS: ATTEND Internal Medicine Cardiovascular Disease
DX: I08.0 Rheumatic disorders of both mitral and aortic valves (principal)
CPT/HCPCS: 93306; 93356